=== PATIENT | female | born 1950 | race Caucasian/White ===

== ENCOUNTER 2021-01-21 01:44 | Emergency (ER) | payer BC ==
[~2021-01-21] VITALS: Ht 167.6 cm; Wt 65.8 kg
[2021-01-21] MEDS ORDERED: SODIUM CHLORIDE 0.9% 1,000 ML IV ONE (02:15)
[2021-01-21 02:44] LABS: Basophils # (auto) 0.1 10 ^3/uL (0-0.2); Basophils % (auto) 0.5 % (0.0-2.0); Eosinophils # (auto) 0 10 ^3/uL (0-0.8); Eosinophils % (auto) 0.4 % (0.0-7.0); Hematocrit 40.4 % (36.0-46.0); Hemoglobin 14.1 g/dL (12.2-16.2); Lymphocytes # (auto) 1.7 10 ^3/uL (0.4-5.4); Lymphocytes % (auto) 15.8 % (10.0-50.0); Mean Corpuscular Hemoglobin 32.4 pg (28.0-32.0); Mean Corpuscular Hgb Conc. 34.9 g/dL (32.0-36.0); Mean Corpuscular Volume 92.8 fL (80.0-100.0); Monocytes # (auto) 0.9 10 ^3/uL (0-1.3); Monocytes % (auto) 8.1 % (0.0-12.0); Neutrophils # (auto) 8.2 10 ^3/uL (1.6-8.6); Neutrophils % (auto) 75.2 % (37.0-80.0); Nucleated Red Blood Cells % 0.1 %; Red Blood Cells 4.35 10^6/uL (4.0-5.20); Red Cell Distribution Width 13.1 % (11.8-14.3); White Blood Cell 10.9 10^3/uL (4.4-10.8)
[2021-01-21 03:03] LABS: Chloride 107 mmol/L (98-107); Potassium 3.7 mmol/L (3.5-5.1); Sodium 140 mmol/L (136-145)
[2021-01-21 03:06] LABS: Alanine Aminotransferase 21 U/L (13-56); Albumin 3.8 g/dL (3.4-5.0); Anion Gap 10 (5-15); Aspartate Aminotransferase 21 U/L (15-37); BUN/Creatinine Ratio 18.4; Blood Urea Nitrogen 18 mg/dL (7-18); Carbon Dioxide 23 mmol/L (21-32); GFR African American 72 mL/min; GFR Non-African American 60 mL/min; Glucose 98 mg/dL (74-106); Lipase 240 U/L (73-393)
[2021-01-21 03:12] LABS: Alkaline Phosphatase 49 U/L (45-117); Bilirubin, Total 0.6 mg/dL (0.2-1.0); Total Protein 7.9 g/dL (6.4-8.2)
[2021-01-21] MEDS ORDERED: HYDROcodone-ACET 5/325MG TAB PO ONE (07:45)
[2021-01-21 08:36] VITALS: BP 115/59
== END 2021-01-21 09:23 | disposition home or self-care (01) ==
LOC: EDBD 01:44 → ER 01:44
DX: R55 Syncope and collapse (principal); R07.89 Other chest pain; Z88.6 Allergy status to analgesic agent; Z85.3 Personal history of malignant neoplasm of breast
CPT/HCPCS: 36415; 71045; 80053; 82962; 83690; 84484; 96360; 99285; J7030; 93005